=== PATIENT | female | born 2000 | race Hispanic/Latino ===

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

== ENCOUNTER 2020-07-22 01:06 | Emergency (ER) | payer MEDICAID ==
[~2020-07-22 01:06] MED LIST: PREN-154 PO
[2020-07-22] MEDS ORDERED: ACETAMINOPHEN EXTRA STRENGTH 500 MG TABLET ONE (01:46)
[2020-07-22] MEDS ORDERED: ONDANSETRON ODT 4 MG TAB ONE (01:47)
== END 2020-07-22 05:13 | disposition home or self-care (01) ==
LOC: EDH 01:06
DX: S06.0X0A Concussion without loss of consciousness, initial encounter (principal); S30.0XXA Contusion of lower back and pelvis, initial encounter; S00.83XA Contusion of other part of head, initial encounter; Z72.0 Tobacco use; Z79.899 Other long term (current) drug therapy; Y04.2XXA Assault by strike against or bumped into by another person, initial encounter; Y93.89 Activity, other specified; Y92.89 Other specified places as the place of occurrence of the external cause; Y99.8 Other external cause status
CPT/HCPCS: 70450; 70486; 73060

== ENCOUNTER 2020-11-26 01:38 | Emergency (ER) | payer MEDICAID ==
[2020-11-26] MEDS ORDERED: CEFAZOLIN SODIUM 1 GM VIAL ONE (01:58)
[2020-11-26] MEDS ORDERED: TETANUS/DIPHTHERIA TOXOID [ADULT] 0.5 ML VIAL IM ONE (01:59)
[2020-11-26] MEDS ORDERED: ACETAMINOPHEN EXTRA STRENGTH 500 MG TABLET ONE (03:41)
== END 2020-11-26 07:39 | disposition home or self-care (01) ==
LOC: EDH 01:38
DX: S01.419A Laceration without foreign body of unspecified cheek and temporomandibular area, initial encounter (principal); W18.39XA Other fall on same level, initial encounter; Y93.89 Activity, other specified; Y92.018 Other place in single-family (private) house as the place of occurrence of the external cause; Y99.8 Other external cause status
CPT/HCPCS: 70486; 96365; 96366; 99284; J0690; 90714

== ENCOUNTER 2022-09-21 21:17 | Emergency (ER) | payer MEDICAID ==
[~2022-09-21] VITALS: Ht 165.1 cm; Wt 69.4 kg
[2022-09-21 22:23] LABS: APPEARANCE,URINE CLOUDY (CLEAR); BILIRUBIN,URINE NEGATIVE (NEGATIVE); COLOR,URINE LIGHT-ORANGE (YELLOW); GLUCOSE, URINE (UA) NEGATIVE (NEGATIVE); KETONES,URINE 5 mg/dL (NEGATIVE); LEUKOCYTE ESTERASE ,URINE 500 Leu/uL (NEGATIVE); NITRATE,URINE NEGATIVE (NEGATIVE); OCCULT BLOOD,URINE LARGE (NEGATIVE); PROTEIN,URINE 50 mg/dL (NEGATIVE); UROBILINOGEN,URINE 6 mg/dL (0.2-1.0)
[2022-09-21 22:26] VITALS: BP 126/74
[2022-09-21 22:29] LABS: BACTERIA,URINE RARE /HPF (None Seen); MUCUS,URINE RARE LPF (None Seen); RBC,URINE TNTC /HPF (0-1); SQUAMOUS EPITHELIAL CELL,UR MANY /HPF (0-2); WBC,URINE TNTC /HPF (0-1)
[2022-09-21 22:30] LABS: HCG,QUALITATIVE URINE NEGATIVE (NEGATIVE)
[2022-09-21] MEDS ORDERED: CEPH500B PO (22:50)
[2022-09-21] MEDS ORDERED: CEFTRIAXONE 1G VIAL IM ONE (23:00)
== END 2022-09-21 23:01 | disposition home or self-care (01) ==
LOC: EDH 21:17
DX: N39.0 Urinary tract infection, site not specified (principal)
CPT/HCPCS: 99283; 87088; 81001; 81025; 96372; J0696

== ENCOUNTER 2023-09-01 20:39 | Observation (INO) | payer MEDICAID ==
[~2023-09-01] VITALS: Ht 162.6 cm; Wt 80.8 kg
[~2023-09-01 20:39] MED LIST changes: +CEPH500B PO
[2023-09-01 20:41] VITALS: BP 114/62; PULSE 105; RESP 20
[2023-09-01 21:19] LABS: APPEARANCE,URINE CLOUDY (CLEAR); BILIRUBIN,URINE NEGATIVE (NEGATIVE); COLOR,URINE YELLOW (YELLOW); GLUCOSE, URINE (UA) NEGATIVE (NEGATIVE); KETONES,URINE NEGATIVE (NEGATIVE); LEUKOCYTE ESTERASE ,URINE 250 Leu/uL (NEGATIVE); NITRATE,URINE NEGATIVE (NEGATIVE); OCCULT BLOOD,URINE NEGATIVE (NEGATIVE); PH,URINE 6.5 (5.0-8.0); PROTEIN,URINE 10 mg/dL (NEGATIVE); UROBILINOGEN,URINE 0.2 mg/dL (0.2-1.0)
[2023-09-01 21:20] LABS: ADD UA MICROSCOPIC YES
[2023-09-01 21:33] LABS: BACTERIA,URINE RARE /HPF (None Seen); MUCUS,URINE RARE LPF (None Seen); RBC,URINE 0-1 /HPF (0-1); SQUAMOUS EPITHELIAL CELL,UR MOD /HPF (0-2)
== END 2023-09-01 21:40 | disposition home or self-care (01) ==
LOC: EDH 20:39 → LDH 20:40
PROVIDERS: ADMIT Obstetrics & Gynecology; ATTEND Obstetrics & Gynecology
DX: O36.8130 Decreased fetal movements, third trimester, not applicable or unspecified (principal); Z3A.35 35 weeks gestation of pregnancy; Z79.899 Other long term (current) drug therapy
CPT/HCPCS: 59025; 87088; 81001; G0378; G0379